=== PATIENT | female | born 2000 | race African-American/Black ===

== ENCOUNTER → 2023-08-28 | Outpatient (CLI) | payer OTHER ==
[~2023-08-28] MED LIST: ALBU8.5H; ERGO500029 PO
== END ==
LOC: M CARPUL 14:41
PROVIDERS: ATTEND Physician Assistant
DX: R07.89 Other chest pain (principal); I36.0 Nonrheumatic tricuspid (valve) stenosis

== ENCOUNTER 2023-10-01 09:37 | Day surgery (SDC) | payer OTHER ==
[~2023-10-01] VITALS: Ht 157.5 cm; Wt 81.6 kg
[~2023-10-01 09:37] MED LIST changes: +GLYCOPYRROLATE INJ 0.2 MG/ML 2 ML VIAL As Ordered ONE; +LIDOCAINE 2% 100MG/5ML SDV (FOR ANES.) As Ordered ONE; +propofoL 200 MG/20 ML VIAL As Ordered ONE
[2023-10-01] MEDS ORDERED: DICL50TA2 PO (10:06)
[2023-10-01 11:06] VITALS: TEMP 97.3
[2023-10-01 11:32] VITALS: BP 114/62; O2SAT 100
== END 2023-10-01 11:40 | disposition home or self-care (01) ==
LOC: M OPP 09:37
PROVIDERS: ATTEND Internal Medicine Gastroenterology
DX: K64.8 Other hemorrhoids (principal); K62.5 Hemorrhage of anus and rectum; K59.00 Constipation, unspecified; Z80.0 Family history of malignant neoplasm of digestive organs

== ENCOUNTER 2024-07-26 09:40 | Emergency (ER) | payer OTHER ==
[~2024-07-26] VITALS: Ht 157.5 cm; Wt 88.1 kg
[~2024-07-26 09:40] MED LIST changes: +DICL50TA2 PO; -GLYCOPYRROLATE INJ 0.2 MG/ML 2 ML VIAL As Ordered ONE; -LIDOCAINE 2% 100MG/5ML SDV (FOR ANES.) As Ordered ONE; -propofoL 200 MG/20 ML VIAL As Ordered ONE
[2024-07-26] MEDS ORDERED: PANT40TA29 (09:57)
[2024-07-26 10:00] VITALS: TEMP 97.5
[2024-07-26 13:03] LABS: BASO % 0.3 % (0.0-1.0); EOS % 0.4 % (0.0-3.0); HEMOGLOBIN 10.2 g/dl (12.0-15.5); LYMPH # 2.3 10^3/uL (1.5-5.0); LYMPH % 31.9 % (24.0-44.0); MEAN CORPUSCULAR HEMOGLOBIN 19.7 pg (27.0-33.0); MEAN CORPUSCULAR HGB CONC 31.9 g/dl (32.0-36.5); MEAN CORPUSCULAR VOLUME 61.9 fl (80.0-96.0); MONO # 0.4 10^3/uL (0.0-0.8); NEUTROPHILS # 4.4 10^3/uL (1.5-8.5); NEUTROPHILS % 61.1 % (36.0-66.0); PLATELET COUNT, AUTOMATED 316 10^3/uL (150-450); RED BLOOD COUNT 5.17 10^6/uL (4.00-5.40); WHITE BLOOD COUNT 7.2 10^3/uL (4.0-10.0)
[2024-07-26] MEDS: ACETAMINOPHEN 325 MG TAB PO ONE (13:03)
[2024-07-26 13:17] LABS: LIPASE 32 U/L (12-53)
[2024-07-26 13:19] LABS: ALBUMIN 3.9 G/DL (3.2-5.2); ALKALINE PHOSPHATASE 62 U/L (35-104); ALT/SGPT 11 U/L (7.0-40); AST/SGOT 59 U/L (<34); BILIRUBIN,DIRECT 0.3 MG/DL (<0.4); BLOOD UREA NITROGEN 8 MG/DL (9-23); CALCIUM LEVEL 9.5 MG/DL (8.5-10.1); CARBON DIOXIDE LEVEL 23 MMOL/L (20-31); CHLORIDE LEVEL 107 MMOL/L (98-107); CK-MB VALUE MASS 4.4 NG/ML (<3.6); CREATININE FOR GFR 0.76 MG/DL (0.55-1.30); GLOMERULAR FILTRATION RATE > 60.0 (>60); GLUCOSE, FASTING 83 MG/DL (60-100); POTASSIUM SERUM 3.8 MMOL/L (3.5-5.1); SODIUM LEVEL 137 MMOL/L (136-145); TOTAL PROTEIN 7.4 G/DL (5.7-8.2)
[2024-07-26 13:42] LABS: CPK CREATINE PHOSPHOKINASE 2033 U/L (34-145); MB/CK RELATIVE INDEX 0.21 (< OR =4)
[2024-07-26 13:51] LABS: ERYTHROCYTE SEDIMENTATION RATE 13 mm/hr (0-20)
[2024-07-26 14:30] VITALS: BP 113/55; O2SAT 100
[2024-07-26 15:19] LABS: CK-MB VALUE MASS 4.1 NG/ML (<3.6)
[2024-07-26 15:32] LABS: MB/CK RELATIVE INDEX 0.25 (< OR =4)
== END 2024-07-26 15:19 | disposition left against medical advice (07) ==
LOC: M ED 09:40
DX: O99.419 Diseases of the circulatory system complicating pregnancy, unspecified trimester (principal); R07.9 Chest pain, unspecified; O99.891 Other specified diseases and conditions complicating pregnancy; R74.8 Abnormal levels of other serum enzymes; Z3A.00 Weeks of gestation of pregnancy not specified; Z79.899 Other long term (current) drug therapy; Z53.9 Procedure and treatment not carried out, unspecified reason

== ENCOUNTER → 2024-08-17 | Outpatient (REF) | payer OTHER ==
[~2024-08-17] MED LIST changes: +PANT40TA29
== END ==
LOC: M LAB REF 12:54
PROVIDERS: ATTEND Physician Assistant
DX: J02.9 Acute pharyngitis, unspecified (principal)

== ENCOUNTER 2024-09-15 16:34 | Emergency (ER) | payer OTHER ==
[~2024-09-15] VITALS: Ht 157.5 cm; Wt 86.9 kg
[2024-09-15] MEDS ORDERED: MULTTAB20 PO (16:42)
[2024-09-15] MEDS: ACETAMINOPHEN 325 MG TAB PO ONE (18:46)
[2024-09-15 20:13] LABS: BASO % 0.2 % (0.0-1.0); EOS # 0.1 10^3/uL (0.0-0.5); EOS % 0.6 % (0.0-3.0); HEMATOCRIT 27.8 % (36.0-47.0); LYMPH # 2.3 10^3/uL (1.5-5.0); LYMPH % 26.2 % (24.0-44.0); MEAN CORPUSCULAR HEMOGLOBIN 19.8 pg (27.0-33.0); MEAN CORPUSCULAR HGB CONC 32.4 g/dl (32.0-36.5); MEAN CORPUSCULAR VOLUME 61.2 fl (80.0-96.0); MONO # 0.6 10^3/uL (0.0-0.8); MONO % 6.4 % (2.0-8.0); NEUTROPHILS # 5.8 10^3/uL (1.5-8.5); NEUTROPHILS % 66.3 % (36.0-66.0); PLATELET COUNT, AUTOMATED 246 10^3/uL (150-450); RED BLOOD COUNT 4.54 10^6/uL (4.00-5.40); WHITE BLOOD COUNT 8.7 10^3/uL (4.0-10.0)
[2024-09-15] MEDS ORDERED: RHOGAM 300MCG (1500IU) INJ IM ONE (21:55)
[2024-09-15 22:21] VITALS: BP 124/72; TEMP 98.4; O2SAT 98
[2024-09-15] MEDS: RHOGAM 300MCG (1500IU) INJ IM ONE (22:31)
== END 2024-09-15 22:24 | disposition home or self-care (01) ==
LOC: M ED 16:34
DX: O9A.211 Injury, poisoning and certain other consequences of external causes complicating pregnancy, first trimester (principal); S16.1XXA Strain of muscle, fascia and tendon at neck level, initial encounter; Z3A.11 11 weeks gestation of pregnancy; W00.0XXA Fall on same level due to ice and snow, initial encounter; Y92.9 Unspecified place or not applicable; Y93.9 Activity, unspecified; Y99.9 Unspecified external cause status; O99.341 Other mental disorders complicating pregnancy, first trimester; F41.9 Anxiety disorder, unspecified; F32.A Depression, unspecified
CPT/HCPCS: 76705; 76801; 85025; 85460; 86850; 86900; 86901; 96372; 99284; J2790

== ENCOUNTER → 2024-10-05 | Outpatient (CLI) | payer OTHER ==
[~2024-10-05] VITALS: Ht 157.5 cm; Wt 84.1 kg
[~2024-10-05] MED LIST changes: +ALBUTEROL SULFATE 2.5MG/0.5ML INH NEB SOLN INH PRN; +EPINEPHrine INJ 1 MG/ML 1ML AMP IM PRN; +MULTTAB20 PO; +diphenhydrAMINE 50MG/ML VIAL IV PRN; +methylPREDNISolone 125MG 2ML VIAL IV PRN
[2024-10-05 12:30] VITALS: BP 106/61; O2SAT 100
[2024-10-05] MEDS: IRON SUCROSE 300 MG in NS 250 ML OVER 90 MIN. IV ONE (12:40)
[2024-10-05 14:51] VITALS: BP 128/71; O2SAT 97
== END ==
LOC: M INFU 12:22
PROVIDERS: ATTEND Obstetrics & Gynecology
DX: O99.019 Anemia complicating pregnancy, unspecified trimester (principal)
CPT/HCPCS: 96365; J1756

== ENCOUNTER → 2024-10-12 | Outpatient (CLI) | payer OTHER ==
[~2024-10-12] VITALS: Ht 157.5 cm; Wt 83.6 kg
[2024-10-12] MEDS: IRON SUCROSE 300 MG in NS 250 ML IV ONE (15:23)
[2024-10-12 17:05] VITALS: BP 140/77; O2SAT 99
== END ==
LOC: M INFU 14:46
PROVIDERS: ATTEND Obstetrics & Gynecology
DX: O99.019 Anemia complicating pregnancy, unspecified trimester (principal)
CPT/HCPCS: 96365; J1756

== ENCOUNTER 2024-10-19 10:00 | Outpatient (CLI) | payer OTHER ==
[~2024-10-19] VITALS: Ht 157.5 cm; Wt 84.0 kg
[2024-10-19 10:00] VITALS: BP 98/54; O2SAT 100
[~2024-10-19 10:00] MED LIST changes: +ALBUTEROL SULFATE 2.5MG/0.5ML INH CONCENTRATE NEB SOLN INH PRN; -ALBUTEROL SULFATE 2.5MG/0.5ML INH NEB SOLN INH PRN
[2024-10-19] MEDS: IRON SUCROSE 300 MG in NS 250 ML IV ONE (10:06)
[2024-10-19 11:45] VITALS: BP 141/60; O2SAT 100
== END 2024-10-19 11:45 ==
LOC: M INFU 10:00
PROVIDERS: ATTEND Obstetrics & Gynecology
DX: O99.019 Anemia complicating pregnancy, unspecified trimester (principal); D64.9 Anemia, unspecified; Z3A.00 Weeks of gestation of pregnancy not specified
CPT/HCPCS: 96365; 96366; J1756

== ENCOUNTER 2024-10-26 11:50 | Outpatient (CLI) | payer OTHER ==
[~2024-10-26] VITALS: Ht 165.1 cm; Wt 85.5 kg
[2024-10-26 12:00] VITALS: BP 114/57; O2SAT 100
[2024-10-26] MEDS: IRON SUCROSE 300 MG in NS 250 ML OVER 90 MIN. IV ONE (12:20)
[2024-10-26 13:58] VITALS: BP 124/61; O2SAT 100
== END 2024-10-26 14:00 | disposition home or self-care (01) ==
LOC: M INFU 11:50
PROVIDERS: ATTEND Obstetrics & Gynecology
DX: O99.019 Anemia complicating pregnancy, unspecified trimester (principal)
CPT/HCPCS: 96365; J1756

== ENCOUNTER 2024-11-08 08:51 | Emergency (ER) | payer OTHER ==
[~2024-11-08] VITALS: Ht 157.5 cm; Wt 85.4 kg
[~2024-11-08 08:51] MED LIST changes: -ALBUTEROL SULFATE 2.5MG/0.5ML INH CONCENTRATE NEB SOLN INH PRN; -EPINEPHrine INJ 1 MG/ML 1ML AMP IM PRN; -diphenhydrAMINE 50MG/ML VIAL IV PRN; -methylPREDNISolone 125MG 2ML VIAL IV PRN
[2024-11-08 11:33] LABS: BASO % 0.2 % (0.0-1.0); EOS % 0.4 % (0.0-3.0); HEMATOCRIT 27.3 % (36.0-47.0); HEMOGLOBIN 8.7 g/dl (12.0-15.5); LYMPH # 1.8 10^3/uL (1.5-5.0); LYMPH % 19.3 % (24.0-44.0); MEAN CORPUSCULAR HEMOGLOBIN 20.7 pg (27.0-33.0); MEAN CORPUSCULAR HGB CONC 31.9 g/dl (32.0-36.5); MEAN CORPUSCULAR VOLUME 64.8 fl (80.0-96.0); MONO # 0.4 10^3/uL (0.0-0.8); MONO % 4.4 % (2.0-8.0); NEUTROPHILS % 75.4 % (36.0-66.0); PLATELET COUNT, AUTOMATED 264 10^3/uL (150-450); RED BLOOD COUNT 4.21 10^6/uL (4.00-5.40); WHITE BLOOD COUNT 9.3 10^3/uL (4.0-10.0)
[2024-11-08] MEDS: METOCLOPRAMIDE INJ 10MG/2ML VIAL IV ONE (11:35)
[2024-11-08] MEDS: ACETAMINOPHEN 500 MG TAB PO ONE (11:35)
[2024-11-08] MEDS: NS (Normal Saline) 0.9% 1,000 ML IV ONE (11:36)
[2024-11-08 11:41] LABS: ERYTHROCYTE SEDIMENTATION RATE 7 mm/hr (0-20)
[2024-11-08 11:56] VITALS: TEMP 97.3
[2024-11-08 11:58] LABS: ALBUMIN 3.4 G/DL (3.2-5.2); ALKALINE PHOSPHATASE 57 U/L (35-104); ALT/SGPT 27 U/L (7.0-40); AST/SGOT 32 U/L (<34); BILIRUBIN,DIRECT 0.2 MG/DL (<0.4); BILIRUBIN,TOTAL 0.7 MG/DL (0.3-1.2); BLOOD UREA NITROGEN 6 MG/DL (9-23); C REACTIVE PROTEIN QUANTITATIV 0.55 MG/DL (<1.0); CALCIUM LEVEL 8.8 MG/DL (8.5-10.1); CARBON DIOXIDE LEVEL 22 MMOL/L (20-31); CHLORIDE LEVEL 107 MMOL/L (98-107); CREATININE FOR GFR 0.63 MG/DL (0.55-1.30); GLOMERULAR FILTRATION RATE > 90.0 (>60); GLUCOSE, FASTING 78 MG/DL (60-100); POTASSIUM SERUM 4.2 MMOL/L (3.5-5.1); SODIUM LEVEL 138 MMOL/L (136-145); TOTAL PROTEIN 6.7 G/DL (5.7-8.2)
[2024-11-08] MEDS: diphenhydrAMINE 50MG/ML VIAL IV ONE (12:44)
[2024-11-08 12:47] VITALS: BP 106/55
[2024-11-08 13:32] VITALS: O2SAT 100
[2024-11-08] MEDS ORDERED: PRED20TA PO (13:37)
== END 2024-11-08 13:49 | disposition home or self-care (01) ==
LOC: M ED 08:51
DX: O99.352 Diseases of the nervous system complicating pregnancy, second trimester (principal); O99.012 Anemia complicating pregnancy, second trimester; G43.909 Migraine, unspecified, not intractable, without status migrainosus; D64.9 Anemia, unspecified; Z3A.18 18 weeks gestation of pregnancy
CPT/HCPCS: 80048; 80076; 85025; 85652; 86140; 96361; 96374; 96375; 99284; J1200; J2765

== ENCOUNTER 2025-02-10 07:54 | Outpatient (CLI) | payer OTHER ==
[~2025-02-10] VITALS: Ht 157.5 cm; Wt 87.2 kg
[~2025-02-10 07:54] MED LIST changes: +ALBUTEROL SULFATE 2.5 MG/0.5 ML INH CONCENTRATE NEB SOLN INH PRN; +EPINEPHrine INJ 1 MG/ML 1ML AMP IM PRN; +PRED20TA PO; +diphenhydrAMINE 50 MG/ML VIAL IV PRN
[2025-02-10 08:15] VITALS: BP 111/66; O2SAT 100
[2025-02-10] MEDS: IRON SUCROSE 300 MG in NS 250 ML IV ONE (08:42)
[2025-02-10 10:25] VITALS: BP 135/78; O2SAT 100
== END 2025-02-10 10:30 | disposition home or self-care (01) ==
LOC: M INFU 07:54
PROVIDERS: ATTEND Nurse Practitioner Women's Health
DX: D64.9 Anemia, unspecified (principal)
CPT/HCPCS: 96365; 96366; J1756

== ENCOUNTER 2025-02-17 09:49 | Outpatient (CLI) | payer OTHER ==
[~2025-02-17] VITALS: Ht 157.5 cm; Wt 87.3 kg
[2025-02-17 09:55] VITALS: BP 126/59; O2SAT 100
[2025-02-17] MEDS: IRON SUCROSE 300 MG in NS 250 ML OVER 90 MIN. IV ONE (10:38)
[2025-02-17 12:20] VITALS: BP 122/65; O2SAT 100
== END 2025-02-17 12:20 | disposition home or self-care (01) ==
LOC: M INFU 09:49
PROVIDERS: ATTEND Nurse Practitioner Women's Health
DX: O99.013 Anemia complicating pregnancy, third trimester (principal); Z3A.29 29 weeks gestation of pregnancy
CPT/HCPCS: 96365; 96366; J1756

== ENCOUNTER 2025-02-24 08:55 | Outpatient (CLI) | payer OTHER ==
[~2025-02-24] VITALS: Ht 157.5 cm; Wt 87.0 kg
[2025-02-24 09:29] VITALS: BP 107/56; O2SAT 100
[2025-02-24] MEDS: IRON SUCROSE 300 MG in NS 250 ML IV ONE (09:35)
[2025-02-24 11:14] VITALS: BP 108/67; O2SAT 100
== END 2025-02-24 11:15 ==
LOC: M INFU 08:55
PROVIDERS: ATTEND Nurse Practitioner Women's Health
DX: D64.9 Anemia, unspecified (principal)
CPT/HCPCS: 96365; G0463; J1756

== ENCOUNTER 2025-03-02 01:39 | Emergency (ER) | payer OTHER ==
[~2025-03-02] VITALS: Ht 157.5 cm; Wt 87.3 kg
[~2025-03-02 01:39] MED LIST changes: -ALBUTEROL SULFATE 2.5 MG/0.5 ML INH CONCENTRATE NEB SOLN INH PRN; -EPINEPHrine INJ 1 MG/ML 1ML AMP IM PRN; -diphenhydrAMINE 50 MG/ML VIAL IV PRN
[2025-03-02] MEDS ORDERED: ASPI325T57 PO (01:44)
[2025-03-02] MEDS ORDERED: LIDOCAINE 1% MDV 20 ML VIAL As Ordered ONE (05:02)
[2025-03-02] MEDS: NEOSPORIN OINT 0.9 GM PKT TOP ONE (05:06)
[2025-03-02] MEDS: LIDOCAINE 1% SDV 30 ML VIAL SC SCH (05:06)
[2025-03-02] MEDS: LIDOCAINE 1% MDV 20 ML VIAL SC ONE (05:23)
[2025-03-02] MEDS ORDERED: CEPH500C PO (05:57)
[2025-03-02 06:04] VITALS: BP 101/54; TEMP 97.5; O2SAT 100
== END 2025-03-02 06:05 | disposition home or self-care (01) ==
LOC: M ED 01:39
DX: O9A.219 Injury, poisoning and certain other consequences of external causes complicating pregnancy, unspecified trimester (principal); S61.216A Laceration without foreign body of right little finger without damage to nail, initial encounter; W26.8XXA Contact with other sharp object(s), not elsewhere classified, initial encounter; Y92.009 Unspecified place in unspecified non-institutional (private) residence as the place of occurrence of the external cause; Y93.9 Activity, unspecified; Y99.9 Unspecified external cause status; Z3A.00 Weeks of gestation of pregnancy not specified

== ENCOUNTER 2025-03-03 10:02 | Outpatient (CLI) | payer OTHER ==
[~2025-03-03] VITALS: Ht 157.5 cm; Wt 87.2 kg
[~2025-03-03 10:02] MED LIST changes: +ALBUTEROL SULFATE 2.5 MG/0.5 ML INH CONCENTRATE NEB SOLN INH PRN; +ASPI325T57 PO; +CEPH500C PO; +EPINEPHrine INJ 1 MG/ML 1ML AMP IM PRN; +diphenhydrAMINE 50 MG/ML VIAL IV PRN
[2025-03-03 10:08] VITALS: BP 105/52; O2SAT 100
[2025-03-03] MEDS: IRON SUCROSE 300 MG in NS 250 ML IV ONE (10:42)
[2025-03-03 12:30] VITALS: BP 138/70; O2SAT 100
[2025-03-04] MEDS ORDERED: PRENTAB9 PO (19:25)
== END 2025-03-03 12:35 | disposition home or self-care (01) ==
LOC: M INFU 10:02
PROVIDERS: ATTEND Nurse Practitioner Women's Health
DX: D64.9 Anemia, unspecified (principal)
CPT/HCPCS: 96365; 96366; J1756

== ENCOUNTER 2025-03-04 19:12 | Outpatient (CLI) | payer OTHER ==
[~2025-03-04] VITALS: Ht 157.5 cm; Wt 88.9 kg
[~2025-03-04 19:12] MED LIST changes: -ALBUTEROL SULFATE 2.5 MG/0.5 ML INH CONCENTRATE NEB SOLN INH PRN; -EPINEPHrine INJ 1 MG/ML 1ML AMP IM PRN; -diphenhydrAMINE 50 MG/ML VIAL IV PRN
[2025-03-04] MEDS ORDERED: HOME MED LIST COMPLETE! XX SCH (19:25)
[2025-03-04] MEDS ORDERED: PRENTAB9 PO (19:25)
[2025-03-04 19:30] VITALS: BP 108/55
[2025-03-04] MEDS: ACETAMINOPHEN 500 MG TAB PO ONE (20:19)
[2025-03-04 20:44] LABS: PLATELET COUNT, AUTOMATED 214 10^3/uL (150-450)
[2025-03-04 21:09] LABS: INR 1.07
== END 2025-03-04 22:07 | disposition home or self-care (01) ==
LOC: M LDO 19:12
PROVIDERS: ATTEND Obstetrics & Gynecology
DX: O26.893 Other specified pregnancy related conditions, third trimester (principal); R10.11 Right upper quadrant pain; Z3A.35 35 weeks gestation of pregnancy; W54.8XXA Other contact with dog, initial encounter; Y92.9 Unspecified place or not applicable; Y93.9 Activity, unspecified; Y99.9 Unspecified external cause status; Z67.21 Type B blood, Rh negative
CPT/HCPCS: 36415; 59025; 76815; 85027; 85384; 85460; 85610; G0463

== ENCOUNTER → 2025-03-10 | Outpatient (REF) | payer OTHER ==
[~2025-03-10] MED LIST changes: +PRENTAB9 PO
== END ==
LOC: M SFHCWAGY 10:03
PROVIDERS: ATTEND Obstetrics & Gynecology
DX: Z36.85 Encounter for antenatal screening for Streptococcus B (principal); Z3A.36 36 weeks gestation of pregnancy